=== PATIENT | male | born 1985 | race Caucasian/White ===

== ENCOUNTER → 2016-11-19 | Outpatient (CLI) | payer OTHER ==
[~2016-11-19] MED LIST: GADOBUTROL 10 ML VIAL IVP ONE
== END ==
LOC: FIMAGING 12:31
PROVIDERS: ATTEND Psychiatry & Neurology Neurology
DX: M50.822 Other cervical disc disorders at C5-C6 level (principal)
CPT/HCPCS: A9585

== ENCOUNTER → 2016-12-30 | Outpatient (CLI) | payer OTHER | LOC: FIMAGING 19:32 | PROVIDERS: ATTEND Psychiatry & Neurology Neurology | DX: M47.894 Other spondylosis, thoracic region (principal) | CPT/HCPCS: A9585 ==